=== PATIENT | male | born 1965 | race Caucasian/White ===

== ENCOUNTER 2017-02-05 18:20 | Emergency (ER) | END 2017-02-05 18:45 | disposition left against medical advice (07) | LOC: ED 18:20 | DX: R51 Headache (principal) ==

== ENCOUNTER 2017-04-30 21:05 | Observation (INO) ==
[2017-04-30] MEDS ORDERED: GLUCAGON IV ONE (22:26)
[2017-04-30] MEDS ORDERED: VALIUM IV ONE (22:27)
[2017-04-30] MEDS ORDERED: DILAUDID IV ONE (22:37)
--- NOTE | 2017-04-30 22:46 | PROVIDER DOCUMENTATION ---
HPI-Abdominal Pain/GI Problem - General Chief Complaint: Foreign Body/Throat Stated Complaint: "SOMETHING STUCK IN THROAT" Time Seen by Provider: 04/30/17 22:24 Allergies/Adverse Reactions: Patient Allergies Allergy/AdvReac Type Severity Reaction Status Date / Time No Known Allergies Allergy Verified 11/19/15 09:41 Home Medications: Home Medication List Medication Instructions Recorded Confirmed Last Taken Type Sumatriptan Succinate [Imitrex] 100 mg PO ONCE PRN #10 tablet 11/19/15 04/30/17 Unknown Rx Esomeprazole Magnesium [Nexium] 40 mg PO DAILY #30 capsule. 04/30/17 Unknown Rx - History of Present Illness-ABD Nature of Presenting Problems: Pt come in after eating KF about 5pm today. He states he has GERD and hasn't had his nexium for 5 days. He also has migraines and the coughing is making his head hurt. He has had vomiting as well. Review of Systems - Adult - REVIEW OF SYSTEMS - ADULT Constitutional: reports: no symptoms reported. denies: chills, fever, night sweats, weight gain, weight loss Eyes: reports: no symptoms reported. denies: discharge, dry eyes, decreased vision, blurred vision, redness Ears, Nose, Mouth & Throat: reports: no symptoms reported. denies: ear discharge, ear pain, epistaxis, nose pain, mouth/dental pain, mouth swelling, hoarseness, throat pain, throat swelling Cardiovascular: reports: no symptoms reported. denies: chest pain, edema, heart murmur, irregular heart rate, orthopnea, palpitations, poor circulation, PND, syncope Respiratory: reports: no symptoms reported. denies: chronic cough, cough, dyspnea on exertion, excessive sputum production, hemoptysis, pleurisy, shortness of breath Gastrointestinal: reports: see HPI, abdominal pain, nausea, vomiting. denies: hematemesis, constipation, diarrhea, difficulty swallowing, frequent heartburn, poor appetite, rectal bleeding Genitourinary: reports: no symptoms reported. denies: dysuria, discharge, frequency, flank pain, frequent UTI's, hesitency, incontinence, urinary retention, urgency Musculoskeletal: reports: no symptoms reported. denies: bone pain, back pain, frequent leg cramps, joint pain, joint swelling, muscle aches, muscle weakness, neck pain Integumentary: reports: no symptoms reported. denies: hives, hair loss, itching , mole changes, skin sores/ulcer, skin thickening Neurological: reports: no symptoms reported. denies: ataxia, dizziness/vertigo , headache/migraines, loss of balance, paresthesia, seizure, syncope Psychiatric: reports: no symptoms reported. denies: anxiety, alcohol/drug dependence, depression, emotional problems, insomnia, suicidal thoughts Endocrine: reports: no symptoms reported. denies: change in skin pigment, excessive sweating, goiter, cold intolerance, increased hunger, increased thirst , polyuria Hematologic/Lymphatic: reports: no symptoms reported. denies: blood clots, easy bruising, low blood count, lymphedema, swollen lymph nodes, transfusions Allergic/Immunologic: reports: no symptoms reported. denies: allergic reactions , allergic rhinitis, asthma, eczema, food allergy, hay fever, hives, positive PPD, urticaria All Other Systems: Reviewed and Negative Past History - Adult - PAST MEDICAL HISTORY-ADULT Review of Records: reports: Old Records Reviewed, Nursing Assessment Review, Medications Reviewed, Social history reviewed & non-contributory. Major Childhood Illnesses: reports: denies history Cardiovascular: reports: denies history Respiratory: reports: denies history Gastrointestinal: reports: denies history Obstetrical/Gynecological: reports: denies history Genitourinary: reports: denies history Musculoskeletal: reports: denies history Neurological: reports: headaches/migraines Endocrine/Immune: reports: denies history Other Conditions: reports: denies history Additional History: Allergies - PRIOR SURGERIES/PROCEDURES Surgical/Procedure History: reports: reviewed, not pertinent - IMMUNIZATION STATUS Childhood Immunizations: See Nurse Assessment Flu Vaccine: See Nurse Assessment - FAMILY HISTORY Family History: reviewed, not pertinent - SOCIAL HISTORY Smoking: denies Substance Use: none/never Alcohol Use Frequency: never Living Situation: family Physical Exam-General - PHYSICAL EXAM-ADULT Initial Vital Signs Reviewed: Yes - CONSTITUTIONAL General Appearance: appears well, alert, no apparent distress - EYES Eyes: PERRL/EOMI, pink conjunctivae - HEAD, EARS, NOSE, MOUTH & THROAT HENMT: normocephalic/atraumatic, moist mucous membranes, normal ENT inspection - RESPIRATORY Respiratory: chest non-tender, lungs clear, normal breath sounds, no pleuratic chest pain - CARDIOVASCULAR Cardiovascular: normal peripheral pulses, regular rate, rhythm - GASTROINTESTINAL (ABDOMEN) Abdominal Exam: normal bowel sounds, non tender, soft, no organomegaly, no pulsatile mass - MUSCULOSKELETAL Back Exam: normal inspection, no CVA tenderness Extremity: normal range of motion, non-tender, normal gait, normal inspection, no pedal edema - SKIN Integumentary: normal color, normal turgor, warm/dry - NEUROLOGIC Neurologic: lidder II-XII nml as tested, grossly normal - PSYCHIATRIC Psych/Mental Status: normal mood/affect, normal thought content, normal thought process, oriented x 3 Progress - PLAN OF CARE/RESULTS Progress/Plan/Lab Results: Vital Signs - 8 hr 04/30/17 21:19 Temperature 98.1 F Pulse Rate 98 H Respiratory Rate 14 Blood Pressure 149/84 O2 Sat by Pulse Oximetry 100 Orders Category Date Time Status IV Insertion ORDERED Care 04/30/17 22:26 Active NECK W/O CONTRAST [CT] Stat Exams 04/30/17 22:25 Ordered Diazepam [Valium] Med 04/30/17 22:27 Discontinued 5 mg IV NOW ONE Glucagon Med 04/30/17 22:26 Discontinued 1 mg IV NOW ONE Hydromorphone [Dilaudid] Med 04/30/17 22:37 Once 0.5 mg IV NOW ONE - CT/MRI 1 CT Study: Neck Impression: See EMR Report CT Results: no acute finding (rad) Departure - Departure Time of Disposition Decision: 23:22 DIAGNOSIS: Esophageal spasm Disposition: HOME 01 Certified Medical Emergency: Emergent Condition: Good Prescriptions: Esomeprazole Magnesium [Nexium] 40 mg PO DAILY #30 capsule.dr - Critical Care Note This patient required my direct & personal management of CC.: No Attestation - Physician/ MARIA DE JESUS Attestation Patient care was provided by Advanced Practice Provider:: Yes Advanced Practice Provider:: Lissa Mckenzie Advanced Practice Provider documentation review:: The Mid-level provider documentation, treatment plan and medical decision making was reviewed by the physician who agrees with all treatment and medical decision making by the P.
[2017-04-30] MEDS ORDERED: STERILE WATER INJ. ONE (22:49)
[2017-04-30] MEDS ORDERED: G.I. COCKTAIL PO ONE (23:21)
[2017-04-30] MEDS ORDERED: PROTONIX IV ONE (23:49)
[2017-04-30] MEDS ORDERED: SODIUM CHLORIDE 0.9% INJ ONE (23:49)
[2017-04-30 23:52] LABS: MANUAL DIFF NEEDED? NO
[2017-04-30] MEDS ORDERED: NITROGLYCERIN SL ONE (23:55)
[2017-05-01] LABS: BASO% 0.3 % (0.0-0.8); EOS# 0.32 X1000 (0.0-0.7); EOS% 2.6 % (0.0-10.0); HEMATOCRIT 42.8 % (42.0-52.0); HEMOGLOBIN 14.7 g/dL (14.0-18.0); IMM GRAN# 0.03 X1000 (0.0-0.04); IMM GRAN% 0.2 % (0.0-0.5); LYMPH# 2.88 X1000 (1.2-3.4); LYMPH% 23.8 % (20.5-51.1); MCH 30.8 PG (27-31); MCHC 34.3 g/dL (33-37); MCV 89.5 FL (81-99); MONO# 0.76 X1000 (0.11-0.59); MONO% 6.3 % (1.7-9.3); MPV 11.6 FL (7.4-10.4); NEUT% 66.8 % (42.2-75.2); PLT 210 X1000 (130-400); RBC 4.78 XMIL (4.7-6.1)
[2017-05-01 00:23] LABS: AGAP 12; ALBUMIN 4.3 g/dL (3.5-5.0); ALKALINE PHOSPHATASE 99 U/L (32-122); BUN 12 mg/dL (8-22); CALCIUM 8.9 mg/dL (8.8-10.2); CHLORIDE 104 mmol/L (98-107); COSMO 283; GOT 22 U/L (10-34); GPT 26 U/L (10-44); SODIUM 142 mmol/L (136-145); TCO2 26 mmol/L (25-35); TOTAL BILIRUBIN 0.27 mg/dL (0.20-1.00); TOTAL PROTEIN 7.3 g/dL (6.3-8.3)
[2017-05-01] MEDS ORDERED: DILAUDID IM ONE (00:35)
[2017-05-01] MEDS ORDERED: SODIUM CHLORIDE 0.9% INJ ONE (00:56)
[2017-05-01] MEDS ORDERED: ZOFRAN IV PRN (00:56)
[2017-05-01] MEDS ORDERED: MAALOX PLUS LIQUID PO PRN (00:56)
[2017-05-01] MEDS ORDERED: TYLENOL PO PRN (00:56)
[2017-05-01] MEDS ORDERED: PROTONIX IV SCH (00:56)
[2017-05-01] MEDS: REGLAN IV SCH ×3 (01:18→14:40)
--- NOTE | 2017-05-01 01:28 | HISTORY AND PHYSICAL ---
REASON FOR ADMISSION: Acute dysphagia. PRIMARY CARE PHYSICIAN: Dr. Rehan Beltran. HISTORY OF PRESENT ILLNESS: Mr. Daljit Golden is a 51-year-old man with past medical history of migraines and severe reflux disease. He has never had any extensive GI workup. He comes in today complaining of sudden lower esophageal dysphagia, both to liquids and solids. He says he just finished completing a [employer] chicken wing, after taking the last piece, he felt it was stuck distally in his esophagus. This culminated in having intense pain down there, and he sought care in the ER. While in the ER, he was given some Valium, because he was very anxious, glucagon and some pain medication. He appeared to comment a bit, and after he was given 30 mL of our GI cocktail, he proceeded to vomit everything out. No coffee grounds noted. No hematochezia and no hematemesis. No melanotic stools or altered bowel movements. He denies any weight loss. He says in the past he has had multiple episodes of intermittent sudden dysphagia, and they usually last less than about an hour, and spontaneously resolve. However, on this occasion, he said this has gone on for several hours, and it is the worst episode he has ever had. He denies any cardiorespiratory complaints. No neurological complaints or musculoskeletal complaints. REVIEW OF SYSTEMS: Twelve system review is negative. Positive findings per HPI. ALLERGIES: No known drug allergies. MEDICATIONS: Takes Imitrex 100 mg p.r.n., and Nexium 40 mg daily. His last dose was 5 days ago. He says whenever he does not take his Nexium on a daily basis, he tends to have these intermittent for the is episodes of dysphagia. DIAGNOSTIC DATA: Lab work is pending. FAMILY HISTORY: Notable for peptic ulcer disease, type 2 diabetes, and lung cancer in first- degree relatives. SURGICAL HISTORY: He has had inguinal hernia surgery, and a deviated septum surgery. SOCIAL HISTORY: Does not smoke, drink, or use drugs. Lives with a friend. PHYSICAL EXAMINATION: GENERAL: On examination, anxious middle-aged man, who is not in acute distress. He is A and O x3. Normal mood and affect. VITAL SIGNS: Blood pressure 149/84, heart rate 98, respirations 14, temperature 98.1, 100% on room air. HEENT: Head is normocephalic, atraumatic. The it showed no aortic his vital signs are as follows. Cautious white count 56906 hemoglobin and hematocrit 12 and 42, but lab work. Follow commands. HEENT: Head is normocephalic, atraumatic. Eyes: PERRL, EOMI. He is anicteric, not pale. ENT and oropharynx exam is grossly normal. No sign of cyanosis. NECK: Supple. No JVD or carotid bruit. No thyromegaly. No lymphadenopathy. CHEST: Clear to auscultation with good air entry in both lung nguyen. HEART: First and second heart sound heard. No gallops, murmurs or rubs. Rhythm is regular. ABDOMEN: Full, soft, with tenderness confined only to the epigastrium. No rebound or guarding. No masses or megaly. Bowel sounds are hypoactive RECTAL: Deferred at this time. EXTREMITIES: No edema, clubbing or cyanosis. NEUROLOGIC: Grossly intact. No deficits. SKIN: Intact with no breakdown, lesions or edema. MUSCULOSKELETAL: Normal. LABS: White count is 12,000, hemoglobin and hematocrit 14 and 42, platelets 210,000. Chemistry is normal. His CT scan of the neck does show partially contracted proximal esophagus. ASSESSMENT: 1. Acute dysphagia, secondary to esophageal spasm. Esophageal spasm is probably related to his worsening reflux disease. 2. Migraines. 3. Reactive leukocytosis. PLAN: At this time, we will schedule patient for a GI evaluation. I added EGD versus upper GI series, to be determined by Dr. Johnson, who is insulation helper. Continue IV PPIs since the patient cannot take orally. The patient's symptoms were primarily due to severe distal esophageal inflammation from noncompliance of his PPI medication. Currently, the patient we will start patient on low-dose Reglan, still PPIs. I have given the patient a trial dose of sublingual nitroglycerin, to see if this is truly due to spasm or early onset stricture. Hydrate patient. Check labs in the morning, and further orders per Dr. Johnson. cc: MD Rehan Chau MD
[2017-05-01] MEDS: NS 1,000 ML IV SCH ×2 (01:29→08:14)
[2017-05-01] MEDS: IMITREX PO SCH ×2 (03:33→12:46)
[2017-05-01] MEDS ORDERED: IMITREX SUBQ ONE (05:08)
--- NOTE | 2017-05-01 07:08 | Diag Imaging Result Doc PS360 ---
EXAM: NECK W/O CONTRAST HISTORY: questionable food in throat TECHNIQUE: CT of the neck without contrast COMMENT: There is no evidence of acute disease in the visualized portions of the lung apices. The larynx is normal in appearance. The epiglottis is not enlarged. The pharynx and nasopharynx are unremarkable. The salivary glands are symmetrical in appearance. There is no evidence of significant adenopathy. There is no evidence of acute bony disease. There is no evidence of radiopaque foreign body. IMPRESSION: No evidence of acute disease. Electronically signed by Brian Be 05/01/2017 7:06 AM
--- NOTE | 2017-05-01 12:47 | PROGRESS NOTE ---
DATE: 05/01/2017 SUBJECTIVE: He presented yesterday after food seemed to get lodged in his esophagus. He was admitted early this morning. Actually, a 51-year-old with past medical history of migraine, severe reflux disease. Never had any extensive GI work up. He came in the emergency room with sudden lower esophageal dysphagia to both liquids and solids. He just finished completing [employer] chicken wing. After taking the last piece, he felt it was stuck distally in his esophagus and has culminated in having intense pain down and then he came in the emergency room. Give some Valium because he was very anxious, glucagon and some pain medication. Appeared to improve. He was given 30 mL of GI cocktail. Proceeded to vomit everything out. No coffee- grounds noted. No hematochezia. No hematemesis. No melanotic stool or altered bowel movements reported. Denies any weight loss as he has had multiple episodes of dysphagia though over the last year and they usually last less than an hour. He sees his primary care doctor, Dr. Beltran and he was put on proton pump inhibitor. He feels better now. I saw him about 8:00 the following morning, and Dr. Johnson is consulted. He is admitted to observation and question is when he should get his EGD or when we can schedule it, or whether he needs to come back as an outpatient for that. EXAM: General: Today, alert and oriented. Vital signs: Temperature 97.8, pulse 62, respirations 20, blood pressure 106/59. Eyes: Pupils equal, round. Neck: CVP less than 6 cm. Lungs: Clear in all lung nguyen. Cardiovascular: Regular rate without murmur or S3. Abdomen: Soft. Skin: Warm and dry. LAB: Reviewed and unremarkable. He did get a neck CT done and no evidence of acute disease. cc: Ken George MD
[2017-05-01] MEDS ORDERED: CARAFATE LIQUID PO ONE (13:49)
[2017-05-01 15:01] VITALS: BP 115/69
--- NOTE | 2017-05-01 15:10 | CONSULTATION ---
DATE OF CONSULTATION: 05/01/2017 ATTENDING PHYSICIAN: Ken George MD PRIMARY CARE DOCTOR: Dr. Rehan Beltran REASON FOR CONSULTATION: Dysphagia. Food impaction. HISTORY OF PRESENT ILLNESS: Mr. Golden is a 51-year-old male, who has a history of intermittent trouble swallowing with solids and liquids going on for a few years ago. Yesterday he was eating fried chicken wings and the last bite appeared to get stuck in the lower part of his food pipe. He felt intense pain in the chest at that time, and came to the ER. In the ER he was given Valium and some pain medication and GI cocktail, but he ended up throwing up everything. He was admitted for GI consultation today. This morning he felt sick to his stomach and spit up the piece of chicken which helped resolve his symptoms. The patient will need an upper endoscopy evaluation. The patient was on Nexium as needed at home per Dr. Beltran. He ran out of his medication recently. The patient has never had an EGD or colonoscopy in the past. PAST MEDICAL HISTORY: 1. Migraines. 2. Reflux disease. 3. Previous history of intermittent dysphagia. PAST SURGICAL HISTORY: 1. Inguinal hernia surgery. 2. Deviated nasal septal surgery. SOCIAL HISTORY: Denies alcohol, tobacco, or illicit drugs. He lives with a friend. He works for [employer]. ALLERGIES: No known drug allergies. MEDICATION: 1. Imitrex 100 mg as needed. 2. Nexium 40 mg daily as needed. Last dose was 5 days ago. REVIEW OF SYSTEMS: Denies any fevers, rigors, chills, chest pain, shortness of breath, dyspnea at rest. Denies any genitourinary complaints, nausea, vomiting or passing blood in the stools. Denies any change in bowel habits. Since on spitting up the piece of chicken he is feeling better. He wants to try drinking some liquids. MEDICATIONS IN THE HOSPITAL: 1. Carafate 1 g p.o. once. 2. Tylenol. 3. Magnesium oxide 30 mL p.o. t.i.d. 4. IV fluids 150 mL/hour. 5. Zofran 4 mg IV every 4 hours. 6. Protonix 40 mg IV once daily. 7. Sumatriptan 100 mg p.o. as directed. He is on clear liquid diet. PHYSICAL EXAMINATION: Vital signs: Temperature 97.8 degrees, pulse of 71, respiratory 20, blood pressure 106/59, saturating 98% room air. Body weight of 175 pounds. BMI of 25.8 kg/m2. General Appearance: Moderately built, moderately nourished, lying in bed, in no acute distress. HEENT: No pallor. No icterus. Pupils equal, react to light. Neck: Supple. Chest: Decreased breath sounds. Cardiac: Regular rate and rhythm. Abdomen: Soft, nontender, nondistended. Bowel sounds present. No rebound or guarding. Extremities: No cyanosis, clubbing, edema. Neurologic: Alert, awake, oriented. LABORATORY: His hemoglobin and hematocrit is 14.7 and 42.8, white count of 12.08, platelet count of 210,000. MCV of 89.5. Sodium 142, potassium 4, chloride 104. Bicarb 26, anion gap 12, BUN of 12, creatinine 1.1, glucose of 100, calcium is 8.9. Total bilirubin is 0.27. AST 22, ALT 26, alkaline phosphatase 99, total protein 7.3, albumin of 4.3. IMAGING: Neck CT was done yesterday which showed no evidence any acute disease. IMPRESSION AND PLAN: 1. Food impaction which has resolved spontaneously. 2. Intermittent dysphagia going on for years. 3. Reflux disease. 4. Migraines, on Imitrex. RECOMMENDATIONS: 1. The patient will be on clear liquid diet today. If he tolerates a clear liquid diet, the patient will be given discharge home and he will follow up for outpatient EGD on Saturday. The instructions and risks, benefits, indications of EGD were discussed with the patient and family at bedside. 2. We will keep the patient on Protonix as an inpatient and on discharge we have given him a prescription of Nexium once daily for 90 day supply. 3. The patient was recommended to chew the food very well. The patient was also offered an inpatient EGD, but the patient wants to go home and get it done as an outpatient. 4. The patient will follow gastroesophageal reflux life changes. Avoid excessive tea, coffee, soda, tomatoes, onions, spicy foods. 5. The above plan was discussed with the patient and family at bedside. All questions were answered. patient. cc: MD Rehan Zeng MD Allen J. Schmidt, MD [facility] CENTERIvis
--- NOTE | 2017-05-01 17:26 | DISCHARGE SUMMARY ---
ADMISSION DATE: 05/01/2017 DISCHARGE DATE: 05/01/2017 HOSPITAL COURSE: The patient was admitted early this morning on 05/01/2017. He had acute dysphagia. He is a patient of Dr. Rehan Beltran. A 51-year-old with past medical history of migraines, severe reflux disease, never had any extensive GI work up. He came in early this morning complaining of severe lower esophageal dysphagia both to liquids and solids. Says he just finished completing [employer] chicken wing and after last piece, he felt it was stuck distally in the esophagus. This culminated in having intense pain and he sought care at the ER. In the ER he was given Valium because he was very anxious, glucagon and some pain medication. He appeared to improve a little bit. He got 30 mL of GI cocktail and he vomited everything out. No coffee-grounds noted. No hematochezia. No hematemesis. No melanotic stools or altered bowel movements. He denied any weight loss. Says that in the past he has had multiple episodes of intermittent sudden dysphagia and lasts usually less than an hour. Spontaneously resolves. However, on his occasion he said that it had gone on for several hours, the worst episode he ever had. ALLERGIES: No known drug allergies. MEDICATIONS: He was on Imitrex 100 mg p.r.n. Nexium 40 mg a day. Last dose was 5 days ago. He says he takes Nexium on a daily basis. When he interrupts it, he does have some dysphagia. DISCHARGE DIAGNOSIS: 1. So admitted with acute dysphagia secondary to esophageal spasm. Esophageal spasm probably related to his worsening reflux disease. He may have stricture. 2. History of migraines. 3. Leukocytosis. DISCHARGE PLAN: Dr. Thorne evaluated. He was tolerating liquids. [place] like he was doing better. Set him up for an EGD on Saturday, this is Saturday, and he was discharged on medications. He was put on some Protonix, he is on sertraline 100 mg daily, Imitrex 100 mg p.o. once a day p.r.n. migraine. He will follow up with Dr. Thorne on Saturday for EGD, Dr. Thorne and Dr. Johnson. Keep him on Protonix. I gave him a 90 day supply. cc: Ken George MD
== END 2017-05-01 17:30 | disposition home or self-care (01) ==
LOC: ED 21:05 → 4N 21:05 → SUATTDRO 05-01 00:35
PROVIDERS: ATTEND Emergency Medicine